=== PATIENT | female | born 1975 | race Caucasian/White ===

== ENCOUNTER 2017-04-20 05:26 | Day surgery (SDC) | payer BC ==
[~2017-04-20] VITALS: Ht 162.6 cm; Wt 68.6 kg
[2017-04-20 06:05] VITALS: BP 154/83
[2017-04-20 10:00] VITALS: BP 110/70
[2017-04-20 11:13] VITALS: BP 151/80
== END 2017-04-20 11:37 | disposition home or self-care (01) ==
LOC: SDC 05:26
DX: N84.0 Polyp of corpus uteri (principal); N94.6 Dysmenorrhea, unspecified; N92.0 Excessive and frequent menstruation with regular cycle; N73.6 Female pelvic peritoneal adhesions (postinfective); Z82.3 Family history of stroke; Z83.3 Family history of diabetes mellitus
CPT/HCPCS: 88305; J0131; J1100; J1885; J2250; J2405; J2710; J2765; J3010